=== PATIENT | male | born 1955 | race Caucasian/White ===

== ENCOUNTER 2023-05-23 08:50 | Outpatient (CLI) | payer MEDICARE, SELFPAY ==
--- NOTE | ~2023-05-23 | XR_ITS ---
Right Knee Technique: AP, lateral, and sunrise views were obtained. Clinical History: Pain and swelling Findings: No fracture or dislocation is seen. There is medial compartment narrowing. There is moderat e tricompartmental degenerative spurring. Soft tissues are unremarkable. No joint effusion is seen. Impression: Advanced medial compartment degenerative change, medial compartment narrowing. Moderate degenerative change of the lateral and patellofemoral compartments. Reviewed, dictated and finalized at location M. Impression: Advanced medial compartment degenerative change, medial compartment narrowing. Moderate degenerative change of the lateral and patellofemoral compartments.
--- NOTE | ~2023-05-23 | XR_ITS ---
Left Knee Technique: AP, lateral, and sunrise views were obtained. Clinical History: Pain and swelling Findings: No fracture or dislocation is seen. There is medial compartment narrowing. There is moderat e tricompartmental osteophyte formation. Soft tissues are unremarkable. No joint effusion is seen. Impression: Moderate to advanced tricompartmental degenerative change, worst in the medial compartment, with medi al compartment narrowing. Reviewed, dictated and finalized at location M. Impression: Moderate to advanced tricompartmental degenerative change, worst in the medial compartment, with medial compartment narrowing.
== END 2023-05-23 08:51 | disposition home or self-care (01) ==
PROVIDERS: PCP Internal Medicine; Visit Provider Orthopaedic Surgery
DX: M25.561 Pain in right knee (principal); M25.562 Pain in left knee; M17.0 Bilateral primary osteoarthritis of knee
CPT/HCPCS: 73564

== ENCOUNTER 2023-05-26 08:13 | Outpatient (CLI) | payer MEDICARE, SELFPAY ==
--- NOTE | 2023-05-26 08:29 | ECG_ITS ---
Measurements Intervals [place] Rate: 71 P: 21 ND: 193 QRS: -69 QRSD: 140 T: 66 QT: 401 QTc: 438 Interpretive Statements SINUS RHYTHM LEFT AXIS DEVIATION LEFT BUNDLE BRANCH BLOCK ABNORMAL ECG NO PREVIOUS ECG AVAILABLE FOR COMPARISON Electronically Signed On 05-26-2023 8:38:48 CDT by Manpreet Smith D.O.
[2023-05-26 08:38] LABS: Appearance Urine Clear (Clear); Basophils Absolute Auto 0.06 K/mm3 (0.00-0.10); Basophils Percent Auto 0.9 % (0.0-1.0); Bilirubin Urine Negative (Negative); Blood Urine Negative (Negative); Color Urine Light Yellow (Yellow); Eosinophils Absolute Auto 0.19 K/mm3 (0.02-0.50); Eosinophils Percent Auto 2.8 % (1.0-6.0); Glucose Urine UA Negative (Negative); Hematocrit 47.2 % (37.0-46.0); Hemoglobin 15.4 g/dL (12.4-15.3); Immature Granulocyte Absolute 0.03 K/mm3 (0.00-0.00); Immature Granulocyte Percent A 0.4 % (0.0-0.0); Ketones Urine Negative (Negative); Leukocyte Esterase Ur Negative LEU/UL (Negative); Lymphocytes Absolute Auto 2.15 K/mm3 (1.10-4.50); Lymphocytes Percent Auto 31.3 % (18.0-42.0); Mean Corpuscular HGB Conc 32.6 g/dL (32.0-36.0); Mean Corpuscular Hemoglobin 29.6 pg (27.0-31.0); Mean Corpuscular Volume 90.6 fL (78.0-102.0); Mean Platelet Volume 10.4 fl (8.7-11.0); Monocytes Absolute Auto 0.68 K/mm3 (0.10-0.90); Monocytes Percent Auto 9.9 % (2.0-11.0); Neutrophils Absolute Auto 3.8 K/mm3 (1.7-7.2); Neutrophils Percent Auto 54.7 % (50.0-70.0); Nitrate Urine Negative (Negative); Platelet Count Result 263 K/mm3 (150-420); Protein Urine Negative (Negative); Red Blood Count 5.21 M/mm3 (4.70-6.10); Red Cell Distribution Width 13.6 % (11.6-14.4); Specific Grav Ur 1.015 (1.010-1.020); Urobilinogen Urine 0.2 mg/dL (0.2-1.0); White Blood Count 6.9 K/mm3 (4.8-10.8)
[2023-05-26 08:40] LABS: Add Urine Microscopic? NO
[2023-05-26 08:56] LABS: Anion Gap 5 mmol/L (8-16); Blood Urea Nitrogen 17 mg/dL (7-18); Calcium 9.9 mg/dL (8.5-10.1); Carbon Dioxide 28 mmol/L (21-32); Chloride 106 mmol/L (98-108); Estimated Glomerular Filt Rate > 60; Glucose 108 mg/dL (70-99); Osmolality Calculated 290 mOsm/kg (285-295); Sodium 139 mmol/L (136-145)
== END 2023-05-26 08:14 | disposition home or self-care (01) ==
LOC: CHSLAB 08:14
PROVIDERS: PCP Internal Medicine; Visit Provider Orthopaedic Surgery
DX: I10 Essential (primary) hypertension (principal); M17.11 Unilateral primary osteoarthritis, right knee; I44.7 Left bundle-branch block, unspecified; R94.31 Abnormal electrocardiogram [ECG] [EKG]
CPT/HCPCS: 36415; 80048; 81003; 85025; 93005

== ENCOUNTER 2023-11-14 13:39 | Outpatient (CLI) | payer MEDICARE, SELFPAY ==
[2023-11-14 15:53] LABS: Basophils Absolute Auto 0.1 K/mm3 (0.0-0.1); Basophils Percent Auto 0.6 % (0.2-1.2); Eosinophils Absolute Auto 0.3 K/mm3 (0-0.3); Eosinophils Percent Auto 3.8 % (0-4.4); Hematocrit 46.4 % (42.0-52.0); Hemoglobin 14.8 g/dL (14.0-18.0); Immature Granulocyte Absolute 0.03 K/mm3 (0.00-0.031); Immature Granulocyte Percent A 0.4 % (0-0.5); Lymphocytes Absolute Auto 2.32 K/mm3 (0.9-3.2); Lymphocytes Percent Auto 29.3 % (18.3-44.2); Mean Corpuscular HGB Conc 31.9 g/dl (32-36); Mean Corpuscular Hemoglobin 28.8 pg (26-34); Mean Corpuscular Volume 90.4 fl (80-100); Mean Platelet Volume 10.1 fl (7.4-10.4); Monocytes Absolute Auto 0.8 K/mm3 (0.1-0.6); Monocytes Percent Auto 10.1 % (2.6-8.5); Neutrophils Absolute Auto 4.4 K/mm3 (1.3-6.7); Neutrophils Percent Auto 55.8 % (45.5-73.1); Platelet Count Result 306 k/mm3 (150-375); Red Blood Count 5.13 M/mm3 (4.6-6.20); Red Cell Distribution Width 14.7 % (11.5-14.5); White Blood Count 7.9 K/mm3 (4.5-10.0)
[2023-11-14 15:59] LABS: Partial Thromboplastin Time 30.3 SECONDS (22.3-36.8); Prothrombin Time 13.6 Seconds (11.1-14.7)
[2023-11-14 16:14] LABS: Albumin Level 4.7 g/dL (3.5-5.1); Anion Gap 8 mmol/L (8-16); Blood Urea Nitrogen 19 mg/dL (9-20); Calcium 9.6 mg/dL (8.4-10.2); Carbon Dioxide 28 mmol/L (22-30); Chloride 105 mmol/L (98-107); Estimated Glomerular Filt Rate > 60; Glucose 96 mg/dL (65-110); Potassium 4.3 mmol/L (3.4-5.0); Sodium 141 mmol/L (137-145)
[2023-11-14 16:20] LABS: Hemoglobin A1C 5.7 % (<5.7)
[2023-11-14 17:49] LABS: MRSA (PCR) NOT DETECTED (NOT DETECTE)
== END 2023-11-14 13:40 | disposition home or self-care (01) ==
LOC: ANHSURGERY 13:48
PROVIDERS: PCP Internal Medicine; Visit Provider Orthopaedic Surgery
DX: Z01.818 Encounter for other preprocedural examination (principal); M17.12 Unilateral primary osteoarthritis, left knee; I25.10 Atherosclerotic heart disease of native coronary artery without angina pectoris; I10 Essential (primary) hypertension; E78.5 Hyperlipidemia, unspecified; Z95.2 Presence of prosthetic heart valve
CPT/HCPCS: 80048; 82040; 83036; 85025; 85610; 85730; 87641

== ENCOUNTER 2023-11-22 09:41 | Outpatient (CLI) | payer MEDICARE, SELFPAY ==
--- NOTE | ~2023-11-22 | CT_ITS ---
EXAMINATION: CT abdomen pelvis wo con DATE: 11/22/2023 10:04 INDICATION: Hematuria. TECHNIQUE: Computed tomography (CT) of the abdomen and pelvis was performed without intravenous contr ast. Automated exposure control and iterative reconstruction technique were employed. The dose-length product was 532.95 mGy-cm. COMPARISON: None. FINDINGS: The visualized portions of the lung bases demonstrate mild atelectasis. No pleural effusion . The heart size is normal. There are changes of mitral valve replacement. No pericardial effusion. T he liver, spleen, pancreas, and left adrenal gland are normal. There is a 2.0 cm mass in right adrena l gland measuring low-attenuation, consistent with an adenoma. There are cysts in right kidney measur ing up to 2.8 cm. There is a 2 mm stone in right kidney. There is a 3 mm stone in left kidney. There are changes of right hemicolectomy. There are no dilated loops of bowel. The bladder is severely enla rged and measures 18.0 x 11.4 x 27.8 cm. There is calcified atherosclerosis of the aorta and many of the other arteries. There are no pathologically enlarged lymph nodes. There is no free intraperitonea l fluid. There are chronic bilateral L5 pars defects. There is 8 mm anterolisthesis of L5 on S1. Ther e is severe lower lumbar spondylosis. There is mild chronic height loss of multiple vertebral bodies. IMPRESSION: 1. Severely enlarged bladder. 2. Small bilateral nonobstructing kidney stones. Reviewed, dictated and finalized at location A. CLE REPAIRMAN
== END 2023-11-22 09:42 | disposition home or self-care (01) ==
LOC: CHSIMG 09:42
PROVIDERS: PCP Internal Medicine; Visit Provider Internal Medicine
DX: R31.9 Hematuria, unspecified (principal); R93.41 Abnormal radiologic findings on diagnostic imaging of renal pelvis, ureter, or bladder; N20.0 Calculus of kidney
CPT/HCPCS: 74176

== ENCOUNTER 2023-11-27 09:28 | Outpatient (CLI) | payer MEDICARE, SELFPAY ==
[2023-11-27 10:07] LABS: Appearance Urine Clear (Clear); Bacteria Urine None Seen /hpf; Bilirubin Urine Negative (Negative); Color Urine Yellow (Yellow); Glucose Urine UA Negative (Negative); Ketones Urine Negative (Negative); Leukocyte Esterase Ur 2+ LEU/UL (Negative); Nitrate Urine Negative (Negative); Non Pathogenic Casts 0-2; Protein Urine Trace mg/dL (Negative); Specific Grav Ur 1.013 (1.001-1.035); Squamous Epithelial Cell Urine None seen /hpf (Few); Urobilinogen Urine 0.2 mg/dL (<2.0); WBC Urine 21-50 /hpf; pH Urine 6.5 (5.0-9.0)
[2023-11-27 10:13] LABS: Add Urine Microscopic? YES
[2023-11-27 10:17] LABS: Urine Cotinine NEGATIVE
== END 2023-11-27 09:29 | disposition home or self-care (01) ==
PROVIDERS: PCP Internal Medicine; Visit Provider Orthopaedic Surgery
DX: M17.11 Unilateral primary osteoarthritis, right knee (principal); Z01.818 Encounter for other preprocedural examination
CPT/HCPCS: 80307; 81001; 86850; 86900; 86901; 87086

== ENCOUNTER 2023-11-28 00:33 | Day surgery (SDC) | payer MEDICARE, SELFPAY ==
[2023-11-14 14:07] VITALS: BMI 38.9
--- NOTE | 2023-11-14 14:40 | PC.NURSE ---
Report to the Outpatient Waiting Room, entrance under the green pavilion located off [facility], at time __8:30AM on date _11/28/23 . Planned Procedure Time: __10:30AM . Time changes happen often and if your time is changed the preop area will call you the afternoon before. - You and your visitor will be asked to self-screen and do not enter if you have any COVID symptoms. - A mask is optional within the hospital at this time. Patients may have clear liquids (water, carbonated beverages, clear teas, apple juice) until 3 hours prior to surgery with a maximum of 20 ounces. - No food from midnight until time of surgery. Take the following medications with a SIP of water the morning of surgery: ____CARVEDILOL DO NOT STOP ANY OF YOUR OTHER PRESCRIPTION MEDICATIONS PRIOR TO SURGERY ?EXCEPT THE FOLLOWING Medications to discontinue per physician ____HOLD ALL ASPIRIN 7 DAYS PRE-OP PER DR ZARATE Date to take last dose 11/20/23 Please no make-up, nail bolivian, hairspray, perfume, deodorant, or body powder the day of surgery. No jewelry (including any body piercings) or valuables the day of surgery, leave them at home. Please take a shower or bath the night before, or the morning of, surgery with an antibacterial soap. Wear comfortable, loose fitting clothing. - Jewelry must be removed prior to entering the operating room. Rings and piercings that are not removed may be cut off. - The hospital will not accept responsibility for valuables. - Please leave all valuables, including medications, at home the day of surgery. If you are going home after surgery, a licensed set key driver must drive you home. - NO public transportation without another adult if you receive anesthesia. - We recommend that an adult stay with you for 24 hours following discharge. - We also recommend that you do not drive, make important decision, drink alcoholic beverages, or take any drugs that were not prescribed by your health care provider for at least 24 hours after your discharge time. Follow any additional instructions given to you from your surgeon. If you or anyone in your household have experienced Covid symptoms in the past week, please notify your surgeon or the nurse liaison at the phone number below for possible testing. Telephone instructions given to ___PATIENT & WIFE and asked if any additional questions and then verbalized understanding. Patient advised to call surgeon office or pre surgery nurse liaison [phone] if any additional questions.
[2023-11-14 15:04] VITALS: BP 143/84; PULSE 79; RESP 16; TEMP 36.7; O2SAT 97
--- NOTE | 2023-11-27 14:01 | WPDANESEPPF ---
Anes - Initial Pre Proc Eval Procedure: Operation Date: 11/28/23 10:30 Proposed Procedures p Left Total Knee Arthroplasty - Roc Ocampo MD Date/Time: 11/27/23 14:01 Surgeon: Roc Ocampo MD Pre Op Diagnosis: left knee DJD Patient Data Age: 68 Gender: M Height: 1.7 m Weight: 113 kg Last Vital Signs Temp 36.7 C 11/14/23 15:04 Pulse 79 11/14/23 15:04 Resp 16 11/14/23 15:04 BP 143/84 H 11/14/23 15:04 Pulse Ox 97 11/14/23 15:04 O2 Del Method Room Air 11/14/23 15:04 Allergies Allergy/AdvReac Type Severity Reaction Status Date / Time No Known Allergies Allergy Verified 11/28/23 10:40 Home Medications Medication Instructions Recorded Confirmed Type aspirin 81 mg capsule 81 mg PO DAILY 05/23/23 11/14/23 History atorvastatin 20 mg tablet 20 mg PO DAILY 05/23/23 11/14/23 History carvedilol 12.5 mg tablet 12.5 mg PO Q12H 05/23/23 11/14/23 History furosemide 40 mg tablet 40 mg PO QAM 05/23/23 11/14/23 History lisinopril 20 mg tablet 20 mg PO QAM 05/23/23 11/14/23 History tamsulosin 0.4 mg capsule 0.4 mg PO QAM 05/23/23 11/14/23 History chlorhexidine gluconate 4 % 1 applic topical ONCE #237 mL 11/14/23 Rx topical liquid (Hibiclens) psyllium husk 0.4 gram capsule 0.8 g PO DAILY 11/14/23 11/14/23 History (Metamucil) chlorhexidine gluconate 4 % 1 applic topical ONCE #237 mL 11/21/23 Rx topical liquid (Hibiclens) levofloxacin 500 mg tablet 500 mg PO DAILY UTI 10 days #10 11/27/23 Rx tabs Patient hx anesthesia problems: none Family hx anesthesia problems: none Results Review: All pre-operative results and documents have been reviewed as part of the pre-operative evaluation. [facility]LY [facility] Past Medical History Medical History (Updated 11/27/23 @ 14:01 by Myles Arenas DO) Atrial fibrillation CAD (coronary artery disease) CHF (congestive heart failure) Colon cancer Enlarged prostate Hyperlipidemia Hypertension Left knee DJD Right knee DJD Sleep apnea Thyroid nodule Surgical History Surgical History (Updated 11/17/23 @ 10:34 by ANTONIO Peoples) H/O hernia repair Heart valve transplanted Family History Family History Unknown Hypertension Heart disease Diabetes mellitus Social History Social History Smoking status: Never smoker Alcohol intake: never Substance use type: does not use Living arrangements: with family Additional living arrangements comments: Occupation/Education: retired Gender identity (if verbalized by the patient): Male Spiritual care concerns: No Anes - Eval Final PreProcedure Day of Procedure 11/27/23 14:01 Patient weight: obese Heart: regular rate and rhythm Lungs: clear to auscultation Airway: Mallampati scale class II Neurological: alert and oriented Last oral intake: >/= 8 hours ASA classification: III Emergent: no Anesthetic plan: proceed Anesthesia type and monitoring: general LMA and standard monitoring Results Review: All pre-operative results and documents have been reviewed as part of the pre-operative evaluation. Informed Consent: The patient's anesthetic plan and its attendant risks and benefits were discussed with the patient/family/POA. Questions were solicited and answers provided to the satisfaction of the patient/family/POA.
[2023-11-28] VITALS (13 sets, daily range): BP systolic 110–175; BP diastolic 56–84; PULSE 72–84; RESP 12–20; TEMP 36–37.1; O2SAT 88–99; BMI 38.5
--- NOTE | ~2023-11-28 | XR_ITS ---
EXAMINATION: [id number] DATE: 11/28/2023 13:57 INDICATION: Total left knee arthroplasty. Postop. TECHNIQUE: 2 views of left knee were obtained. COMPARISON: Left knee radiographs 05/23/2023 FINDINGS: There is a total left knee arthroplasty in near-anatomic alignment without patellar resurfa cing. No fracture. There is an osteophyte of the patella. There is gas in the knee joint and soft tis sues, consistent with recent surgery. Anterior skin lisa are noted. IMPRESSION: 1. Total left knee arthroplasty in near-anatomic alignment. Reviewed, dictated and finalized at location E. AL DAYCARE PROVIDER
--- NOTE | 2023-11-28 07:16 | WPDHPUPDATE1 ---
History and Physical Update Update Date/Time: 11/28/23 07:16 History and Physical has been reviewed, including an updated exam of the patient. There are NO changes in the patient's condition. Risks, benefits, and alternatives have been discussed and questions answered. Patient agrees to proceed with procedure.
[2023-11-28] MEDS: TRANEXAMIC ACID 1,000MG/ISO100 1,000 MG/100 ML BAG 200 MG IVPB (09:25)
[2023-11-28] MEDS: LACTATED RINGERS 1,000 ML 30 ML IV CONT ×2 (09:25→13:42)
[2023-11-28] MEDS: ACETAMINOPHEN 500 MG TABLET 1000 MG PO (09:31)
--- NOTE | 2023-11-28 10:20 | SUR.PREOP ---
1020- Dr. Ocampo at bedside and notified of scratch on patient's left rose below operative knee that is closed, scabbed over and healing. Dr. Ocampo assessed scratch and OK to proceed with procedure.
--- NOTE | 2023-11-28 10:44 | WPDANESPNB ---
Anes - Peripheral Nerve Block Date/Time: 11/28/23 10:44 I have discussed with the patient/family/POA the placement of a peripheral nerve block for post-operative pain management, including associated risks, benefits, complications, and side effects. Alternative methods of post-operative analgesia were detailed. Questions were solicited and answers provided to the satisfaction of the patient/family/POA. Time-Out: A pre-procedural Time-Out was completed immediately before starting the procedure and confirmed: Patient Identification, Site, Procedure, Patient Position and the Availability of Requisite Equipment. Clinical Indications: Acute post-operative pain management requested by the operative surgeon. Nerve Block Insertion Note Anes-nerve block: adductor canal left Patient position: supine Skin prep: chlorhexidine Needle: 22 gauge, stimulating, insulated echogenic needle. Needle length: 80 mm Technique: ultrasound Injectate: bupivacaine 0.5% with epi 5 mcg/ml (30cc - no epi) Observations: tolerated well Complications: none Procedure start time:: 1033 Procedure end time:: 1035
[2023-11-28] MEDS: ceFAZolin 2 GM/D5W 50 ML 2 GM/50 ML BAG IVPB ×2 (10:57→20:10)
[2023-11-28] MEDS: SODIUM CHLORIDE 0.9% IV 37.7 ML, MORPHINE SULFATE INJ (*CRX) 2 MG, ROPivacaine HCL 1% 2... INFILTRATE (11:41)
[2023-11-28] MEDS: TRANEXAMIC ACID 1,000 MG/10 ML AMPUL 1000 MG IV PUSH (12:45)
--- NOTE | 2023-11-28 13:43 | W.PM.PROC2 ---
Procedure Note - Detailed Date of Procedure 11/28/23 Pre-op Diagnosis left knee DJD Post-op Diagnosis Same Procedure Performed L TKA Surgeon Roc Ocampo MD Anesthesia General Description of Procedure THE LEFT KNEE WAS PREPPED AND DRAPED IN THE STERILE FASHION. THERE WAS A 20 DEGREE FLEXION CONTRACTURE. A MIDLINE SKIN INCISION WAS MADE. A MEDIAL PARAPATELLAR ARTHROTOMY WAS MADE. THE PATELLA WAS EVERTED. THERE WAS TRICOMPARTMENT DJD. AN INTRAMEDULLARY DEMARIO WAS PLACED IN THE FEMUR. A DISTAL FEMORAL CUT WAS MADE IN 5 DEGREES OF VALGUS REMOVING APPROXIMATELY 11 MM OF BONE FROM THE DISTAL FEMUR. THE FEMUR WAS SIZED TO 70. A 70 FEMORAL CUTTING BLOCK WAS PLACED IN 3 DEGREES OF EXTERNAL ROTATION AND IN ALIGNMENT WITH FARRAH'S LINE AND THE TRANSEPICONDYLAR AXIS. ANTERIOR POSTERIOR AND CHAMFER CUTS WERE MADE. THE CUTS WERE EXCELLENT. NEXT AN INTRAMEDULLARY CUTTING GUIDE WAS PLACED IN THE TIBIA. A TRANS TIBIAL CUT WAS MADE ALONG THE LONG AXIS OF THE TIBIA. APPROXIMATELY 10 MM OF BONE WAS REMOVED FROM THE HIGH SIDE OF THE TIBIA. THE TIBIA WAS THEN PLANED TO A SMOOTH SURFACE. POSTERIOR FEMORAL OSTEOPHYTES WERE REMOVED FROM THE FEMORAL CONDYLES. AN 83 TIBIAL TRIAL WAS PLACED IN ALIGNMENT WITH THE 1/3 MEDIAL ASPECT OF THE TIBIAL TUBERCLE. THEN A 70 FEMORAL TRIAL COMPONENT WAS PLACED. BOTH HAD EXCELLENT FITS. EVENTUALLY AN 11 MM CR POLYETHYLENE TRIAL COMPONENT WAS PLACED. THE KNEE WAS TAKEN THROUGH A RANGE OF MOTION. THE KNEE CAME OUT TO FULL EXTENSION. THERE WAS NO ABNORMAL TILT TO THE PATELLA. THERE WAS GOOD A/P AND VARUS/VALGUS STABILITY. THERE WAS NO EXCESSIVE ROLL BACK WITH FLEXION. THE TRIAL COMPONENTS WERE REMOVED. THEN A 70 FEMORAL COMPONENT AND 83 TIBIAL COMPONENT WITH AN 11 CR POLYETHYLENE COMPONENT WERE CEMENTED INTO PLACE. ONCE THE CEMENT WAS HARD THE KNEE WAS TAKEN THROUGH A ROM AGAIN AND FOUND TO BE STABLE WITH NO PATELLA TILT NO EXCESSIVE ROLL BACK WITH FLEXION AND GOOD STABILITY WITH COMPLETE AND FULL EXTENSION. THE KNEE WAS IRRIGATED WITH STERILE BETADINE AND WATER FOR ABOUT 3 MINUTES. THE BLEEDERS WERE CAUTERIZED. THE ARTHROTOMY WAS REPAIRED WITH NUMBER 1 VICRYL. THE SUB CUTANEOUS LAYER WITH 2-0 VICRYL AND THE SKIN WITH MARSHALL. THE WOUND WAS WASHED AND A STERILE DRESSING WAS APPLIED. PATIENT WAS EXTUBATED. Estimated Blood Loss -150.0 Pathology None sent Complications No immediate complications Condition Stable Disposition PACU
--- NOTE | 2023-11-28 15:09 | PC.NURSE ---
This patient, Terrence Mccoy, was received from [PACU] on 11/28/23 at 1450. Patient/family oriented to unit policies and routines
[2023-11-28] MEDS: KETOROLAC 15 MG/ML VIAL (*BKC) IV PUSH ×2 (15:17→20:11)
[2023-11-28] MEDS: SODIUM CHLORIDE 0.9% IV 1,000 ML 125 ML IV CONT (15:17)
[2023-11-28] MEDS: SENNA/DOCUSATE SODIUM TABLET 2 TAB PO (17:01)
[2023-11-28] MEDS: oxyCODONE/ACETAMINOPHEN (*CRX) 5-325 MG TABLET 1 TABLET PO ×2 (17:01→20:14)
[2023-11-28] MEDS: carvediloL 12.5 MG TABLET PO (20:11)
[2023-11-28] MEDS: ASPIRIN 325 MG ENTERIC TABLET PO (20:14)
[2023-11-28] MEDS: FAMOTIDINE 20 MG TABLET PO (20:14)
[2023-11-29 00:22] VITALS: BP 134/71; PULSE 70; RESP 19; TEMP 36; O2SAT 98
[2023-11-29] MEDS: oxyCODONE/ACETAMINOPHEN (*CRX) 5-325 MG TABLET 1 TABLET PO ×4 (01:17→12:14)
[2023-11-29] MEDS: KETOROLAC 15 MG/ML VIAL (*BKC) IV PUSH ×3 (03:59→14:31)
[2023-11-29] MEDS: ceFAZolin 2 GM/D5W 50 ML 2 GM/50 ML BAG IVPB ×2 (03:59→10:04)
[2023-11-29 04:22] VITALS: BP 141/71; PULSE 66; RESP 19; TEMP 36; O2SAT 98
[2023-11-29 04:54] VITALS: PULSE 65; RESP 18; O2SAT 96
[2023-11-29 06:29] LABS: Basophils Percent Auto 0.2 % (0.2-1.2); Eosinophils Percent Auto 0.2 % (0-4.4); Hematocrit 42.2 % (42.0-52.0); Hemoglobin 13.4 g/dL (14.0-18.0); Immature Granulocyte Absolute 0.06 K/mm3 (0.00-0.031); Immature Granulocyte Percent A 0.4 % (0-0.5); Lymphocytes Absolute Auto 1.98 K/mm3 (0.9-3.2); Lymphocytes Percent Auto 13.9 % (18.3-44.2); Mean Corpuscular HGB Conc 31.8 g/dl (32-36); Mean Corpuscular Hemoglobin 29.9 pg (26-34); Mean Corpuscular Volume 94.2 fl (80-100); Mean Platelet Volume 9.8 fl (7.4-10.4); Monocytes Absolute Auto 1.6 K/mm3 (0.1-0.6); Monocytes Percent Auto 11.1 % (2.6-8.5); Neutrophils Absolute Auto 10.6 K/mm3 (1.3-6.7); Neutrophils Percent Auto 74.2 % (45.5-73.1); Platelet Count Result 274 k/mm3 (150-375); Red Blood Count 4.48 M/mm3 (4.6-6.20); Red Cell Distribution Width 14.9 % (11.5-14.5); White Blood Count 14.3 K/mm3 (4.5-10.0)
[2023-11-29 08:00] VITALS: BP 127/66; PULSE 82; RESP 18; TEMP 36.4; O2SAT 99
[2023-11-29 08:11] LABS: Anion Gap 2 mmol/L (8-16); Blood Urea Nitrogen 17 mg/dL (9-20); Calcium 8.6 mg/dL (8.4-10.2); Carbon Dioxide 29 mmol/L (22-30); Chloride 106 mmol/L (98-107); Estimated CRCL calculation 89 ml/min; Estimated Glomerular Filt Rate > 60; Glucose 108 mg/dL (65-110); Potassium 4.2 mmol/L (3.4-5.0); Sodium 137 mmol/L (137-145)
[2023-11-29] MEDS: FUROSEMIDE 40 MG TABLET PO (08:30)
[2023-11-29] MEDS: TAMSULOSIN HCL 0.4 MG CAPSULE PO (08:30)
[2023-11-29] MEDS: FAMOTIDINE 20 MG TABLET PO (08:30)
[2023-11-29] MEDS: ASPIRIN 325 MG ENTERIC TABLET PO (08:30)
[2023-11-29] MEDS: lisinopriL 20 MG TABLET PO (08:30)
[2023-11-29] MEDS: polyethylene glycoL 3350 17 GM POWD.PACK PO (08:30)
[2023-11-29] MEDS: SENNA/DOCUSATE SODIUM TABLET 2 TAB PO (08:30)
[2023-11-29] MEDS: ATORVASTATIN 20 MG TABLET PO (08:30)
[2023-11-29] MEDS: carvediloL 12.5 MG TABLET PO (08:30)
--- NOTE | 2023-11-29 09:03 | WPDANESPN ---
Anes - Prog Note Post-Op Date/Time: 11/29/23 09:03 Vital Signs: Last Vital Signs Temp 36.0 C L 11/29/23 04:22 Pulse 65 11/29/23 04:54 Resp 18 11/29/23 04:54 BP 141/71 H 11/29/23 04:22 Pulse Ox 96 11/29/23 04:54 O2 Del Method Nasal Cannula 11/29/23 04:54 O2 Flow Rate 1.5 11/29/23 04:54 Pain Score (VAS): 0 I/O: Intake & Output 11/28/23 11/29/23 11/29/23 23:59 07:59 15:59 Intake Total 1250 50 Balance 1250 50 Laboratory Tests 11/29/23 05:47 11/29/23 07:43 11/29/23 11/29/23 05:47 07:43 WBC 14.3 H RBC 4.48 L Hgb 13.4 L Hct 42.2 MCV 94.2 MCH 29.9 MCHC 31.8 L RDW 14.9 H Plt Count 274 MPV 9.8 Immature Gran % (Auto) 0.4 Neut % (Auto) 74.2 H Lymph % (Auto) 13.9 L [place] % (Auto) 11.1 H Eos % (Auto) 0.2 Baso % (Auto) 0.2 Lymph # (Auto) 1.98 [place] # (Auto) 1.6 H Eos # (Auto) 0.0 Baso # (Auto) 0.0 Abs Immat Gran (auto) 0.06 H Absolute Neuts (auto) 10.6 H Absolute Nucleated RBC 0.0 Nucleated RBC % 0.0 Sodium 137 Potassium 4.2 Chloride 106 Carbon Dioxide 29 Anion Gap 2 L BUN 17 Creatinine 0.80 Estim Creat Clear Calc 89 Estimated GFR > 60 Glucose 108 Calcium 8.6 Patient Feedback: Patient satisfied with anesthetic care. pt states he still has no pain and is doing great.
--- NOTE | 2023-11-29 10:56 | PM.PNORT ---
Progress Note: A&P Assessment and Plan (1) Left knee DJD: Qualifiers: Osteoarthritis type: primary Qualified Code(s): M17.12 - Unilateral primary osteoarthritis, left knee Code(s): M17.12 - Unilateral primary osteoarthritis, left knee Status: Acute Assessment and Plan: POD 1 DOING WELL. OK TO DC AFTER AFTERNOON PT SESSION. HE WILL F/U IN 3 WEEKS. (2) Right knee DJD: Code(s): M17.11 - Unilateral primary osteoarthritis, right knee Status: Acute Subjective Subjective Date/Time Seen: 11/29/23 10:56 Interval history: POD 1 DOING WELL. GOOD PROGRESS WITH PT. NO CALF PAIN Exam Extrem: Other: VSS AFEBRILE DRESSING DRY NV INTACT NEG HOMANS SIGN, CALF SOFT NON TENDER Objective Data Vital Signs Vital Signs: Vital Signs - 24 hr 11/28/23 13:42 11/28/23 14:10 11/28/23 14:13 Temperature 37.1 C Pulse Rate 80 76 Respiratory Rate 12 14 Blood Pressure 116/66 110/61 Pulse Oximetry 95 96 88 L Oxygen Delivery Simple Face Mask Room Air Nasal Cannula Oxygen Flow Rate 6 3 11/28/23 14:25 11/28/23 13:55 11/28/23 15:38 Temperature 36.1 C L Pulse Rate 78 79 Respiratory Rate 16 12 Blood Pressure 110/56 L 114/76 Pulse Oximetry 94 97 Oxygen Delivery Nasal Cannula Simple Face Mask Nasal Cannula Oxygen Flow Rate 3 6 3 11/28/23 14:50 11/28/23 15:05 11/28/23 15:35 Temperature 36.4 C 36.3 C L 36.4 C Pulse Rate 78 72 76 Respiratory Rate 20 20 18 Blood Pressure 175/76 H 152/80 H 141/75 H Pulse Oximetry 99 99 99 Oxygen Delivery Oxygen Flow Rate 11/28/23 16:35 11/28/23 14:53 11/28/23 20:11 Temperature 36.4 C Pulse Rate 74 84 Respiratory Rate 20 Blood Pressure 130/66 Pulse Oximetry 99 99 Oxygen Delivery Nasal Cannula Oxygen Flow Rate 3 11/28/23 20:22 11/29/23 00:22 11/29/23 04:22 Temperature 36.0 C L 36.0 C L 36.0 C L Pulse Rate 82 70 66 Respiratory Rate 19 19 19 Blood Pressure 130/74 134/71 141/71 H Pulse Oximetry 97 98 98 Oxygen Delivery Oxygen Flow Rate 11/29/23 04:54 11/29/23 08:35 11/29/23 08:30 Temperature Pulse Rate 65 Respiratory Rate 18 Blood Pressure Pulse Oximetry 96 Oxygen Delivery Nasal Cannula Room Air Room Air Oxygen Flow Rate 1.5 Intake/Output Intake/Output: Intake & Output 11/26/23 11/27/23 11/28/23 11/29/23 23:59 23:59 23:59 23:59 Intake Total 1500 50 Balance 1500 50 Meds/Results Medications: Active Medications Generic Name Dose Route Start Last Admin Trade Name Freq PRN Reason Stop Dose Admin Acetaminophen 1,000 mg 11/28/23 14:37 Acetaminophen 500 Mg Tablet PO Q6H PRN Pain Rated 1-3 Hydrocodone Bitart/Acetaminophen 1 tab 11/28/23 14:37 Hydrocodone/Acetaminophen (*Crx) 5-325 Mg Tablet PO Q4H PRN Pain Rated 4-6 Aspirin 325 mg 11/28/23 21:00 11/29/23 08:30 Aspirin 325 Mg Enteric Tablet PO 325 mg Q12HR QUINTON Administration Atorvastatin Calcium 20 mg 11/29/23 09:00 11/29/23 08:30 Atorvastatin 20 Mg Tablet PO 20 mg DAILY QUINTON Administration Carvedilol 12.5 mg 11/28/23 21:00 11/29/23 08:30 Carvedilol 12.5 Mg Tablet PO 12.5 mg Q12H QUINTON Administration Diazepam 5 mg 11/28/23 14:37 Diazepam (*Crx) 5 Mg Tablet PO Q8H PRN Spasms Diphenhydramine HCl 25 mg 11/28/23 14:37 Diphenhydramine Hcl Inj 50 Mg/Ml Vial IV PUSH Q6H PRN Itching Famotidine 20 mg 11/28/23 21:00 11/29/23 08:30 Famotidine 20 Mg Tablet PO 20 mg Q12HR QUINTON Administration Furosemide 40 mg 11/29/23 09:00 11/29/23 08:30 Furosemide 40 Mg Tablet PO 40 mg QAM QUINTON Administration Cefazolin Sodium 2 gm in 50 mls @ 100 mls/hr 11/28/23 19:00 11/29/23 10:04 Ancef 2 Gm/D5w 50 Ml IVPB 11/29/23 11:29 100 mls/hr Q8H QUINTON Administration Ketorolac Tromethamine 15 mg 11/28/23 15:00 11/29/23 08:29 Ketorolac 15 Mg/Ml Vial (*Bkc) IV PUSH 11/29/23 15:01 15 mg Q6H QUINTON Administratio
--- NOTE | 2023-11-29 10:59 | PM.DS ---
DS: Admitting Diagnosis Discharge Date 11/29/23 Admitting Diagnosis LEFT KNEE DJD DS: Discharge Diagnosis Discharge Diagnosis (1) Left knee DJD: Qualifiers: Osteoarthritis type: primary Qualified Code(s): M17.12 - Unilateral primary osteoarthritis, left knee Code(s): M17.12 - Unilateral primary osteoarthritis, left knee Status: Acute DS: Summary Hospital Course Reason for hospitalization: LEFT TKA Hospital Course: PATIENT WAS ADMITTED S/P TOTAL KNEE ARTHROPLASTY FOR POSTOPERATIVE MEDICAL MANAGEMENT, PAIN CONTROL AND MOBILIZATION WITH PHYSICAL AND OCCUPATIONAL THERAPY. THE PATIENT PROGRESSED WELL WITH PT/OT. LABS AND VITALS REMAINED STABLE AND PAIN WELL CONTROLLED. THE PATIENT HAS BEEN CLEARED TO BE DISCHARGED HOME. FOLLOW UP APPOINTMENT SCHEDULED. DISCHARGE INSTRUCTIONS DISCUSSED AT LENGTH WITH THE PATIENT. MEDICATIONS REVIEWED. Status at Discharge Cognitive/behavioral status at discharge: STABLE Time Spent with Patient Time attestation: Total time spent providing and/or coordinating discharge services: DS: Data Data Completed and Pending Labs on day of discharge: Labs from last 24 hours 11/29/23 11/29/23 07:43 05:47 WBC 14.3 H RBC 4.48 L Hgb 13.4 L Hct 42.2 MCV 94.2 MCH 29.9 MCHC 31.8 L RDW 14.9 H Plt Count 274 MPV 9.8 Immature Gran % (Auto) 0.4 Neut % (Auto) 74.2 H Lymph % (Auto) 13.9 L [place] % (Auto) 11.1 H Eos % (Auto) 0.2 Baso % (Auto) 0.2 Lymph # (Auto) 1.98 [place] # (Auto) 1.6 H Eos # (Auto) 0.0 Baso # (Auto) 0.0 Abs Immat Gran (auto) 0.06 H Absolute Neuts (auto) 10.6 H Absolute Nucleated RBC 0.0 Nucleated RBC % 0.0 Sodium 137 Potassium 4.2 Chloride 106 Carbon Dioxide 29 Anion Gap 2 L BUN 17 Creatinine 0.80 Estim Creat Clear Calc 89 Estimated GFR > 60 Glucose 108 Calcium 8.6 Procedures/Treatments: LEFT TKA Discharge Plan Discharge Patient Disposition: Home, Self-Care Discharge Instructions: FERNY OCAMPO M.D. [facility] [address] [place] [address] POST OPERATIVE DISCHARGE INSTRUCTIONS FOLLOWING TOTAL KNEE REPLACEMENT SURGERY ? Your dressing will be changed prior to your discharge. You will be sent home with one additional dressing to be changed on post op day 7 by the home health RN. Your lisa will be removed on the 14th day after surgery and steri-strips will be placed. Please practice good hand hygiene and do not touch your incision in order to prevent infection. ? You may shower with your dressing but do not submerge in a bath tub. ? Do not drive or operate machinery until you are released by Dr. Ocampo. ? Do not walk without a walker for any reason until you are released by Dr. Ocampo. ? Continue to use your ice machine. Please use a towel or pillow case to protect your skin before applying your ice machine. ? Do NOT place a pillow under your knee. You may use a pillow from the calf down if needed. This will prevent a flexion contracture postoperatively. ? You may begin use of your CPM machine at home if you have been given one pre-operatively. DO NOT USE WHILE YOU ARE SLEEPING. ? Your first post op appointment was sent to you via mail preoperatively. If you have any questions or are unable to make your appointment, please contact our office for scheduling questions. ? Your medications have been sent to your pharmacy. You have been sent home with pain medication. We have also sent you with a stool softener as narcotics can cause constipation. Please keep this in mind during your postoperative recovery. If you are not experiencing regular bowel movements, please contact our office for further instruction. ? Please contact our office with any questions/concerns regarding your knee at [phone]. TAKE 2 ADULT STRENGTH ASPIRIN EAC DAY FOR 3 WEEKS FOR BLOOD CLOT PREVENTION Stand Alone F
[2023-11-29 14:00] VITALS: BP 120/60; PULSE 80; RESP 20; TEMP 36.3; O2SAT 99
== END 2023-11-29 15:45 | disposition home health service (06) ==
LOC: ANHSURGERY 07:52 → ANH3MEDSUR 14:39
PROVIDERS: PCP Internal Medicine; Visit Provider Orthopaedic Surgery
PROC: (CPT 27447; principal; 2023-11-28 10:30)
DX: M17.12 Unilateral primary osteoarthritis, left knee (principal); G89.18 Other acute postprocedural pain; I48.91 Unspecified atrial fibrillation; I25.10 Atherosclerotic heart disease of native coronary artery without angina pectoris; I11.0 Hypertensive heart disease with heart failure; I50.9 Heart failure, unspecified; N40.0 Benign prostatic hyperplasia without lower urinary tract symptoms; G47.30 Sleep apnea, unspecified; E78.5 Hyperlipidemia, unspecified; Z79.82 Long term (current) use of aspirin; Z79.899 Other long term (current) drug therapy
CPT/HCPCS: 27447; 64447; 36415; 73560; 80048; 85025; 97110; 97116; 97161; 97165; 97530; 97535; A9270; C1713; C1776; J0171; J0690; J1100; J1170; J1885; J2250; J2270; J2371; J2405; J2704; J2795; J3010; J7030; J7120

== ENCOUNTER 2023-12-19 08:10 | Outpatient (CLI) | payer MEDICARE, SELFPAY ==
--- NOTE | ~2023-12-19 | XR_ITS ---
XR knee LT 3V 12/19/2023 08:42 Indication: Left knee pain Procedure: 3 views left knee Comparison: 05/23/2023 Findings: There is a left total knee arthroplasty. Prosthesis well seated. No fracture or traumatic m alalignment. No significant soft tissue abnormality. No foreign bodies. Impression: 1: No acute bone or joint abnormality. Reviewed, dictated and finalized at location L. Impression: 1: No acute bone or joint abnormality.
== END 2023-12-19 08:11 | disposition home or self-care (01) ==
LOC: CHSIMG 08:17
PROVIDERS: PCP Internal Medicine; Visit Provider Orthopaedic Surgery
DX: M25.562 Pain in left knee (principal)
CPT/HCPCS: 73562

== ENCOUNTER 2023-12-25 08:02 | Outpatient (RCR) | payer MEDICARE, SELFPAY ==
--- NOTE | 2023-12-25 07:49 | OPREHPOC ---
Outpatient Therapy Plan of Care This is a Multidisciplinary Plan of Care that may contain components documented by all disciplines (PT, OT, and ST.) PT Problem 1 PT Problem #1 Knowledge Deficit PT Goal 1 Goal 1. independent and compliant with HEP Target Visit 4 PT Problem 2 PT Problem #2 Pain PT Goal 1 Goal 1. no pain in the L knee Target Visit 8 PT Problem 3 PT Problem #3 Impaired Range of Motion PT Goal 1 Goal 1. 0-120 degrees active L knee rom Target Visit 8 PT Problem 4 PT Problem #4 Impaired Strength PT Goal 1 Goal 1. 5/5 L knee strength 2. 5/5 L hip flexion with no extension lag of the L knee Target Visit 8 PT Problem 5 PT Problem #5 Impaired Functional Mobil PT Goal 1 Goal 1. patient to ambulate on level surface with normal mechanics and no AD. 2. patient to ambulate up and down steps with reciprocal mechanics 3. LEFS to display less than 30% functional deficits 4. patient to ambulate 1000ft or better in 6 minutes 5. 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
--- NOTE | 2023-12-25 07:49 | PTOPEVAL1 ---
Assessment and note entered by JT File, PT Evaluation Information Assessment Status Evaluation Diagnosis s/p L TKA Onset 11/28/23 Subjective Information patient reports he has a TKA of the L knee on 02/15. he reports he has been doing home health since surgery. in addition to home health he also had a CPM he was using daily. he reports the home health PT told him he has full extension and 100 degrees of flexion. he reports it still swells up on him at time. he reports its not true pain, but there is pressure in the knee. he reports he has been using the cane to ambulate for about 1 week. he reports prior to surgery he was really struggling to get around and was unable to bend the knee much. he reports he was not using an AD consistently. patient reports he would like to get back to work in his shop, and in his [employer] shop. he also reports he would like to get back to volunteering at the [employer]. Reported Pain Level Pain Score 4: Self Report Assessment PT Clinical Summary mr. frankel is a 68 yo man who presents to skilled PT services for evaluation and treatment s /p L TKA. he presents today with deficits in knee active rom, L LE strength, and gait mechanics/ stair ambulation. he is nearly 4 weeks post op, and has been compliant with home health and HEP at home. continued skilled PT is indicated to assist patient in achieving full rom, full strength, and normal ambulation/stair ambulation mechanics to return to his prior level functional activity performance and quality of life. Plan of Care Interventions Electrical Stimulation,Gait Training,Hot Pack/Cold Pack,Intermittent Compression,Manual Therapy, Neuro Re-education,Patient/Caregiver Educati, Therapeutic Activities,Therapeutic Exercise PT Services Indicated Yes Treatment Frequency and 2x weekly for 8 visits Duration These treatments will address the objective and functional deficits as defined above. The patient will be advanced safely and appropriately in order for the patient to progress towards his/her prior level of function. Additional exercises will be introduced and as well as a comprehensive home exercise program upon discharge, if needed, ?to ensure carryover of functional gains achieved in the clinic. This treatment plan has been reviewed and agreement upon by the patient.
--- NOTE | 2024-01-10 09:34 | OPREHPOC ---
Outpatient Therapy Plan of Care This is a Multidisciplinary Plan of Care that may contain components documented by all disciplines (PT, OT, and ST.) PT Problem 1 PT Problem #1 Knowledge Deficit PT Goal 1 Goal 1. independent and compliant with HEP Target Visit 4 Progress Partially Met PT Problem 2 PT Problem #2 Pain PT Goal 1 Goal 1. no pain in the L knee Target Visit 8 Progress Partially Met PT Problem 3 PT Problem #3 Impaired Range of Motion PT Goal 1 Goal 1. 0-120 degrees active L knee rom Target Visit 8 Progress Partially Met PT Problem 4 PT Problem #4 Impaired Strength PT Goal 1 Goal 1. 5/5 L knee strength 2. 5/5 L hip flexion with no extension lag of the L knee Target Visit 8 Progress Partially Met PT Problem 5 PT Problem #5 Impaired Functional Mobil PT Goal 1 Goal 1. patient to ambulate on level surface with normal mechanics and no AD. 2. patient to ambulate up and down steps with reciprocal mechanics 3. LEFS to display less than 30% functional deficits 4. patient to ambulate 1000ft or better in 6 minutes 5. 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
--- NOTE | 2024-01-10 09:35 | PTOPPROG ---
Assessment and note entered by Citlaly Hernández, PT Evaluation Information Assessment Status Discharge Diagnosis s/p L TKA Onset 11/28/23 Subjective Information Terrence Mccoy reports his left knee is doing well. He is able to go up and down stairs without favoring one leg. He is going one step at a time but is not always using his strong leg. 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 He is able to walk 2-3 miles a day throughout the day and notes no difficulty walking in the grass. He is still using his cane occasionally but forgets it often now that his knee does not hurt. He feels he may have gotten all he can out of therapy and he called his surgeon to see if he can discontinue PT. He talked to the nurse practitioner and she said he needs to clear it with PT. Assessment PT Clinical Summary Terrence Mccoy has completed 5 skilled PT visits since undergoing a left total knee replacement on 11/28/23. 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 He was re- evaluated today and was able to achieve left knee AROM of 0-115 degrees prior to stretching. After stretching, he was able to achieve 121 degrees of flexion. He is demonstrating improved strength, improved gait, and improved balance. However, he has not been progressed to functional strengthening and can not easily achieve 0-120 degrees of left knee AROM. He is also still demonstrating decreased stair climbing ability. He will continue to benefit from skilled PT to further address ROM limitations and functional strength. Plan of Care Interventions Neuro Re-education,Patient/Caregiver Educati, Therapeutic Activities,Therapeutic Exercise PT Services Indicated Yes Treatment Frequency and 1 time a week for 3 more visits Duration These treatments will address the objective and functional deficits as defined above. The patient will be advanced safely and appropriately in order for the patient to progress towards his/her prior level of function. Additional exercises will be introduced and as well as a comprehensive home exercise program upon discharge, if needed, ?to ensure carryover of functional gains achieved in the clinic. This treatment plan has been reviewed and agreement upon by the patient.
--- NOTE | 2024-01-24 08:15 | PCPTNOTE ---
01/24/24: Pt cancelled today's visit on 01/23/24, no reason listed. -Citlaly Hernández, PT
--- NOTE | 2024-02-07 07:36 | OPREHPOC ---
Outpatient Therapy Plan of Care This is a Multidisciplinary Plan of Care that may contain components documented by all disciplines (PT, OT, and ST.) PT Problem 1 PT Problem #1 Knowledge Deficit PT Goal 1 Goal 1. independent and compliant with HEP Target Visit 4 Progress Met PT Problem 2 PT Problem #2 Pain PT Goal 1 Goal 1. no pain in the L knee Target Visit 8 Progress Partially Met PT Problem 3 PT Problem #3 Impaired Range of Motion PT Goal 1 Goal 1. 0-120 degrees active L knee rom Target Visit 8 Progress Met PT Problem 4 PT Problem #4 Impaired Strength PT Goal 1 Goal 1. 5/5 L knee strength 2. 5/5 L hip flexion with no extension lag of the L knee Target Visit 8 Progress Met PT Problem 5 PT Problem #5 Impaired Functional Mobil PT Goal 1 Goal 1. patient to ambulate on level surface with normal mechanics and no AD. 2. patient to ambulate up and down steps with reciprocal mechanics 3. LEFS to display less than 30% functional deficits 4. 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
--- NOTE | 2024-02-07 07:36 | PTOPDC ---
Assessment and note entered by Citlaly Hernández, PT Evaluation Information Assessment Status Discharge Diagnosis s/p L TKA Onset 11/28/23 Subjective Information Terrence Mccoy reports his left knee is doing well. He notes it is pain free most of the time except with prolonged sitting it will start to ache but that goes away when he gets up and moves around. He also notes stiffness first thing in the morning. 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 Reported Pain Level Pain Score 2: Self Report Assessment PT Clinical Summary Terrence Mccoy has completed 8 skilled PT visits since undergoing a left TKA on 11/28/23. He is reporting minimal to no pain and has been able to return to previous activity level without difficulty. He notes stiffness in the am and after prolonged sitting he is achy however, that resolves after moving around. He objectively demonstrates improved left knee AROM to functional ranges, improved left knee and hip strength, reciprocal stair negotiation, good endurance, and non-antalgic gait without an AD. He has a 25% self perceived disability per the LEFS. He will be discharged to an independent [facility]. Plan of Care PT Services Indicated No
== END 2024-02-07 08:24 | disposition home or self-care (01) ==
LOC: CHSPT 08:02
PROVIDERS: Visit Provider Orthopaedic Surgery
DX: Z47.1 Aftercare following joint replacement surgery (principal); Z96.652 Presence of left artificial knee joint
CPT/HCPCS: 97016; 97110; 97161; 97530; 97750

== ENCOUNTER 2024-11-19 08:25 | Outpatient (CLI) | payer MEDICARE, SELFPAY ==
--- NOTE | ~2024-11-19 | XR_ITS ---
EXAMINATION: XR knee LT 3V DATE: 11/19/2024 08:43 INDICATION: Left knee replacement. Follow-up. TECHNIQUE: 3 views of left knee were obtained. COMPARISON: Left knee radiographs 12/19/2023 FINDINGS: There is a total left knee arthroplasty without patellar resurfacing in near-anatomic align ment. No fracture. No periprosthetic lucency to suggest loosening or infection. There is a small knee joint effusion. IMPRESSION: 1. Total left knee arthroplasty in near-anatomic alignment. 2. Small left knee joint effusion. Reviewed, dictated and finalized at location [facility] [employer]
--- OUTSIDE RECORDS SUMMARY | 2024-11-19 08:42 | XMS_ITS ---
Author Organization Unknown Address [address] [place], [place] [id number] Phone Care Team Providers Care Equipment Operator Wage Hand Name Role Phone NATALIA BEST Attending Unavailable ANSLEY GE Primary Unavailable Immunization Immunization Date Status Additional Notes Code Code System pneumococcal polysaccharide PPV23 08/27/2016 Completed 33 CVX Tdap 04/02/2023 Completed 115 CVX Pneumococcal conjugate PCV 13 07/20/2018 Completed 133 CVX Influenza, high-dose, trivalent, PF 07/20/2018 Completed 135 CVX Influenza, high-dose, trivalent, PF 09/24/2019 Completed 135 CVX Influenza, split virus, quadrivalent, preservative 08/08/2016 Completed 158 C VX Influenza, split virus, quadrivalent, preservative 05/19/2017 Completed 158 C VX zoster recombinant 04/02/2023 Completed 187 CVX zoster recombinant 08/11/2023 Completed 187 CVX Influenza, high-dose, quadrivalent, PF 08/09/2020 Completed 197 CVX Influenza, high-dose, quadrivalent, PF 06/26/2022 Completed 197 CVX COVID-19, mRNA, LNP-S, PF, 3 0 mcg/0.3 mL dose 01/20/2021 Completed 208 CVX COVID-19, mRNA, LNP-S, PF, 3 0 mcg/0.3 mL dose 02/10/2021 Completed 208 CVX Pneumococcal conjugate PCV20 , polysaccharide [id number] conjugate, adjuvant, PF 08/11/2023 Completed 216 CVX Results CBC W/ DIFF - Collect Date/T lidya: 09/11/2023 18:54 [facility] ID: [id number] [address] [place], [place], [id number] LOINC: 25674-7 Test Value Unit Reference Range Code Code System Flag WBC 9.4 10^3uL L=4.8 H=10.8 RBC 4.87 10^6uL L=4.60 H=6.20 HEMOGLOBIN 14.2 g/dL L=14.0 H=18.0 718-7 LOINC HEMATOCRIT 43.1 VOL% L=42.0 H=52.0 4544-3 LOINC MCV 88.5 fL L=80.0 H=94.0 MCH 29.2 pg L=27.0 H=32.0 MCHC 32.9 g/dL L=32.0 H=36.0 PLATELETS 311 10^3uL L=100 H=400 73790-5 LOINC RDW 13.1 % L=11.7 H=15.5 %GRAN 51.8 % L=40.0 H=70.0 52725-3 LOINC %LYMPH 36.7 % L=20.0 H=45.0 736-9 LOINC %MONO 5.9 % L=2.0 H=10.0 23993-5 LOINC %EOS 4.7 % L=0.0 H=6.0 713-8 LOINC %BASO 0.3 % L=0.0 H=3.0 706-2 LOINC #NEUT 4.8 10^3uL L=1.9 H=7.6 78939-1 LOINC #LYMPH 3.4 10^3uL L=0.9 H=4.9 05107-7 LOINC #MONO 0.6 10^3uL L=0.1 H=0.9 13148-4 LOINC #EOS 0.4 10^3uL L=0.0 H=0.6 712-0 LOINC #BASO 0.03 10^3uL L=0.00 H=0.10 33498-2 LOINC #IM GRANS 0.1 10^3uL L=0.0 H=7.0 32047-2 LOINC %IM GRANS 0.6 % L=0.0 H=5.0 44811-2 LOINC %NRB 0.0 L=0.0 H=0.2 20084-2 LOINC #NRB 0.000 L=0.000 H=0.012 13995-2 LOINC MANUAL DIFF NOT INDICATED RBC MORPH NOT INDICATED COMPREHENSIVE METABOLIC PANE L - Collect Date/Time: 09/11/2023 18:54 [facility] ID: [id number] [address] [place], [place], [id number] LOINC: 96414-9 Test Value Unit Reference Range Code Code System Flag FASTING UNKNOWN BUN 21 mg/dL L=7 H=20 3094-0 LOINC H CREATININE 0.80 mg/dL L=0.66 H=1.25 2160-0 LOINC GLUCOSE 110 mg/dL L=74 H=106 2345-7 LOINC H SODIUM 142 mmol/L L=132 H=144 2951-2 LOINC POTASSIUM 3.4 mmol/L L=3.5 H=5.1 2823-3 LOINC L CHLORIDE 106 mmol/L L=98 H=107 2075-0 LOINC CO2 26.0 mmol/L L=22.0 H=30.0 2028-9 LOINC ANION GAP 13 L=10 H=20 44011-9 LOINC OSMOLALITY 298 mOs/kG L=280 H=296 85556-0 LOINC H BUN/CREAT 26.3 3097-3 LOINC CALCIUM 9.4 mg/dL L=8.3 H=10.5 09380-7 LOINC AST 24 U/L L=15 H=46 1920-8 LOINC ALT 22 U/L L=9 H=72 1742-6 LOINC ALKALINE PHOS 95 U/L L=38 H=126 6768-6 LOINC TOTAL BILI 0.6 mg/dL L=0.2 H=1.3 1975-2 LOINC ALBUMIN 4.3 G/dL L=3.5 H=5.0 1751-7 LOINC TOTAL PROTEIN 7.8 g/L L=6.3 H=8.2 2885-2 LOINC A/G RATIO 1.2 89836-6 LOINC AGE 68 79334-3 LOINC eGFR NON-AFR 102 ml/min eGFR AFR AMER 123 ml/min URINALYSIS w/Microscopy/C&S if indicated - Collect Date/Time: 09/11/2023 18:30 [facility] ID: [id number] [address] [place], [place], [id number] LOINC: 39014-2 Test Value Unit Reference Range Code Code System Flag UR SOURCE UNKNOWN 48764-5 LOINC COLOR RED YELLOW 5778-6 LOINC A CLARITY TURBID CLEAR 58540-5 LOINC A SPEC GRAVITY 1.015 1.000-1.030 5811-5 LOINC PH 7.0 5.0 - 6.5 5803-2 LOINC LEUK EST 2+ NEGATIVE 5799-2 LOINC A NITRATE POSITIVE NEGATIVE A PROTEIN 3+ NEGATIVE 5804-0 LOINC A GLUCOSE TRACE NEGATIVE 19539-2 LOINC KETONES 1+ NEGATIVE 80828-1 LOINC A UROBILINOGEN >=8.0 NEGATIVE 5818-0 LOINC BILIRUBIN 3+ NEGATIVE 78369-5 LOINC A BLOOD 3+ NEGATIVE 85504-0 LOINC WBC 10-20 0 - 2 64400-3 LOINC A RBC TNTC 0 - 2 88679-8 LOINC A EPITHELIAL RARE RARE-FEW 43025-8 LOINC BACTERIA 4+ NONE SEEN 99171-1 LOINC A MUCUS NONE SEEN NONE SEEN 8247-9 LOINC YEAST NOT PRESENT NOT PRESENT 78042-9 LOINC CASTS NONE SEEN 25555-0 LOINC CRYSTALS NONE SEEN 34983-5 LOINC CULTURE? YES 8251-1 LOINC DIAGNOSIS ABN LAB RESU Social History Type Status Start Date End Date Code Code Syst em Smoking History Never smoker (Never Smoked) 251561902 SNOMED CT Sex Male Hospital Discharge Instructions Should you have any questions prior to discharge, please contact a member of your healthcare team. If you have left the hospital and have any questions, please contact your primary care physician. Reason For Referral No Data Found Implants Implanted GAYLE Status Assigning Authority Procedure Date Lot Number Serial Number Manufacturing Date Expiration Date Distinct ID Code Brand Name Model Number [employer] Active XCAPSL CTRC RMVL INSJ IO LENS PROSTH W/O ECP 04/28 [id number] 03/24/2024 [employer] +17.0D Allergies and Adverse Reactions Allergy Substance Reaction Severity Start Date Concern Status Co de Code System No Known Drug Allergies Active [id number] SNOMED-CT Plan of Treatment Cataract Extraction w/ IOL R 04/28/2021 COVID-19 Pre-op Screen 04/26/2021 Cataract Extraction w/ IOL L 05/12/2021 COVID-19 Pre-op Screen 05/10/2021 Encounters Encounter Diagnosis Start Date Code Code Sys tem Acute cystitis with hematuria 09/11/2023 SNOMED-CT Personal Care Team Section Performer Name Performer Role Active Date Inactive Da te
== END 2024-11-19 08:26 | disposition home or self-care (01) ==
LOC: CHSIMG 08:27
PROVIDERS: PCP Internal Medicine; Visit Provider Orthopaedic Surgery
DX: M25.562 Pain in left knee (principal); Z96.652 Presence of left artificial knee joint; M25.462 Effusion, left knee
CPT/HCPCS: 73562

== ENCOUNTER 2025-04-26 19:50 | Outpatient (CLI) | payer MEDICARE, SELFPAY ==
--- OUTSIDE RECORDS SUMMARY | 2025-04-26 19:56 | XMS_ITS | Encounter Summary ---
Author Organization [facility] Address [facility] [place] [address] Care Team Providers Care Mortgage Analyst Name Role Phone Filippo Salinas MD Primary Care Provider [phone] Moy Caballero MD Unavailable Unavailab Joseph Garland MD Primary Care Provider [phone] Filippo Salinas MD Primary Care Provider [phone] Kevin Gloria MD Unavailable Unavailable Chris Austin MD Unavailable [phone] Lynda Silva APRN, WALL TO WALL CARPET INSTALLER-C Unavailable [phone] Roc Ocampo MD Unavailable [phone] Jc Dotson MD Unavailable [phone] Encounter Details Date Type Department Care Team (Late Contact Info) Description 01/16/2013 Abstract [facility] AT [address] [address] Moy Caballero MD Social History Tobacco Use Types Packs/Day Years Used Date Smoking Tobacco: Never Alcohol Use Standard Drinks/Week Comments Yes 0 (1 standard drink = 0.6 oz pur e alcohol) Rare Sex and Gender Information Value Date Recorded Sex Assigned at Not on file Legal Sex Male 6:59 PM CDT Gender Identity Not on file Sexual Orientation Not on file Occupation Industry Job Start Date Job End Date Disabled Not on file Not on file Not on file documented as of this encounter Plan of Treatment Upcoming Encounters Date Type Department Care Team (Late st Contact Info) Description 07/14/2025 8:30 AM CDT Office Visit [facility] [address] [place] [phone] Lynda Silva APRN, [employer] TO [employer] CARPET INSTALLER-C [address] [facility] [address] [place] [phone] documented as of this encounter Visit Diagnoses Not on filedocumented in this encounter Care Teams Mortgage Analyst Relationship Specialty Start Date End Date Filippo Salinas MD [address] [place] [address] PCP - General INTERNAL MEDICINE 04/25/16 06/15/16 Joseph Mccabe MD [address] [place] [address] PCP - General INTERNAL MEDICINE 06/16/16 07/27/16 Filippo Salinas MD [address] [place] [address] PCP - General INTERNAL MEDICINE 07/29/16 Moy Caballero MD [address] [place] [address] CARDIOVASCULAR DISEASE 04/25/16 09/30/18 Kevin Gloria MD [address] [place] [address] SURGERY 08/04/16 05/01/24 Chris Austin MD [address] [place] [address] Consulting Physician CARDIOVASCULAR DISEASE 10/01/18 Lynda Silva APRN, [employer] CARPET INSTALLER-C [address] [facility] [address] [place] [address] NURSE PRACTITIONER 05/19/21 Roc Ocampo MD [address] [place], [place] [id number] Referring Physician ORTHOPAEDIC SURGERY 07/10/23 Jc Dotson MD [address] [place] [address] INTERVENTIONAL CARDIOLOGY 07/11/24 documented as of this encounter
--- OUTSIDE RECORDS SUMMARY | 2025-04-26 19:56 | XMS_ITS | Encounter Summary ---
Author Organization [facility] Address [address] [place] [address] Care Team Providers Care Public Utilities Sales Representative Name Role Phone Moy Caballero MD Unavailable Unavailab Filippo De La Torre MD Primary Care Provider [phone] Kevin Gloria MD Unavailable Unavailable Chris Austin MD Unavailable [phone] Lynda Silva APRN, NP-C Unavailable [phone] Roc Ocampo MD Unavailable [phone] Jc Dotson MD Unavailable [phone] Encounter Details Date Type Department Care Team (Late st Contact Info) Description 10/14/2016 Abstract [facility] AT [facility] [address] [place] [phone] Moy Caballero MD Social History Tobacco Use Types Packs/Day Years Used Date Smoking Tobacco: Never Smokeless Tobacco: Never Alcohol Use Standard Drinks/Week Comments [...] 07/14/2025 8:30 AM CDT [facility] [address] [place] [address] Lynda Silva APRN, CLINIC PHYSICIAN-C [address] [address] documented as of this encounter Visit Diagnoses Not on filedocumented in this encounter Care Teams Public Utilities Sales Representative Relationship Specialty Start Date End Date Filippo Salinas MD [address] [place] [phone] PCP - General INTERNAL MEDICINE 07/29/16 Moy Caballero MD CARDIOVASCULAR DISEASE 04/25/16 09/30/18 Kevin Gloria MD [address] [place] [address] SURGERY 08/04/16 05/01/24 Chris Austin MD [address] [place] [address] Consulting Physician CARDIOVASCULAR DISEASE 10/01/18 Lynda Silva APRN, CLINIC PHYSICIAN-C [address] [address] NURSE PRACTITIONER 05/19/21 Roc Ocampo MD [address] [place] [address] Referring Physician ORTHOPAEDIC SURGERY 07/10/23 Jc Dotson MD [address] [place] [address] INTERVENTIONAL CARDIOLOGY 07/11/24 documented as of this encounter
--- OUTSIDE RECORDS SUMMARY | 2025-04-26 19:56 | XMS_ITS | Clinical Summary ---
Author Organization [facility] Address [address] [place] [address] Care Team Providers Care Faculty Support Coordinator Name Role Phone Filippo Salinas MD Primary Care Provider [phone] Lynda Silva APRN, PERINATAL SPECIALIST-C Unavailable [phone] Roc Ocampo MD Unavailable [phone] Jc Dotson MD Unavailable [phone] Allergies No known active allergies Medications tamsulosin (FLOMAX) 0.4 MG Cap Take 1 tablet by mouth daily. 04/26/2012 Active lisinopril 20 MG tabletIndication s:S/P AVR (aortic valve replacement) Take 1 tablet (20 mg total) by mouth daily. 30 tablet 1 08/27/2016 Active aspirin EC (ECOTRIN) 81 MG tablet Take 1 tablet (81 mg total) by mouth daily. Active furosemide 40 MG tablet Take 1 tablet (40 mg total) by mouth daily. 90 tablet 3 12/18/2018 Active carvedilol 12.5 MG tablet Take 1 tablet (12.5 mg total) by mouth 2 (two) times daily. 180 tablet 3 12/18/2018 Active CPAP MACHINE Active atorvastatin (LIPITOR) 40 MG tablet Take 1 tablet (40 mg total) by mouth daily. 90 tablet 3 07/11/2024 Active Active Problems Problem Noted Date Diagnosed Date Mild CAD 06/24/2021 S/P mitral valve replacement 08/26/2016 Mitral valve regurgitation 08/04/2016 Anemia Hyperlipidemia Hypertension Obstructive sleep apnea on CPAP Overview (05/04/2016): CPAP for sleep apnea. Murmur, cardiac Colon cancer ([facility]) Overview (07/21/2022): left hemicolectomy, no chemo or radiation Family History Medical History Relation Comments Heart Attack Brother 1 [place] Open Heart Brother 1 Stent Cardiac Brother 1 pacemaker Brother 1 Heart Attack Brother 2 Relation Status Comments Brother 1 Brother 2 (Age 43) Sister Social History Tobacco Use Types Packs/Day Years Used Date Smoking Tobacco: Never Smokeless Tobacco: Never Tobacco Cessation:Counseling Given: Not Answered Alcohol Use Standard Drinks/Week Comments Not Currently 0 (1 standard drink = 0.6 oz pur e alcohol) once per month AUDIT-C Answer Date Recorded Frequency of Alcohol Consumption Monthly or less 09/11/2018 Average Number of Drinks 1 or 2 018 Frequency of Binge Drinking Never 08/25 Sex and Gender Information Value Date Recorded Sex Assigned at Not on file Legal Sex Male 6:59 PM CDT Gender Identity Not on file Sexual Orientation Not on file Occupation Industry Job Start Date Job End Date Disabled Not on file Not on file Not on file Last Filed Vital Signs Vital Sign Reading Time Taken Comments Blood Pressure 142/90 07/11/2024 1:25 PM CDT Pulse 87 07/11/2024 1:25 PM CDT Temperature 36.3 C (97.3 F) 09/30/2022 9:40 AM HEAD ANIMAL KEEPER Respiratory Rate 16 07/11/2024 1:25 PM CDT Oxygen Saturation 95% 07/11/2024 1:25 PM CDT Inhaled Oxygen Concentration - - Weight 117.5 kg (259 lb) 07/11/2024 1:25 PM CDT Height 177.8 cm (5' 10) 07/11/2024 1:25 PM CDT Body Mass Index 37.16 07/11/2024 1:25 PM CDT Plan of Treatment Upcoming Encounters Date Type Department Care Team ([facility] Contact Info) Description 07/14/2025 8:30 AM CDT Office Visit [facility] [address] [place] [address] Lynda Silva, CENTRAL OFFICE REPAIRER, PERINATAL SPECIALIST-C [address] [facility] [address] [place] [address] Health Maintenance Due Date Last Done Comments Hepatitis C 1971 RSV Immunization or 60+ Years (1 - Risk 60-74 years 1-dose series) 2013 Annual Medicare Wellness Visit 2018 COVID-19 Vaccine (3 - 2023-2 5 season) 2024 02/10/2021, 01/20/2021 DTaP, Tdap and Td Vaccines ( 2 - Td or Tdap) 04/02/2033 04/02/2023 Colorectal Cancer Screening Colonoscopy (10 Years) Discontinued 09/30/2022, 09/30/2022 Pneumococcal Vaccine: 50+ Years Completed 08/11/2023, 07/20/2018, 08/27/2016 Zoster Vaccines Completed 08/11/2023, 04/02/2023 Meningococcal B Vaccine Aged Out No l onger eligible based on patient's age to complete this topic Meningococcal Vaccine Aged Out No dayanara kylah eligible based on patient's age to complete this topic RSV Immunizations Under 20 Months Aged Out No longer eligible based on patient's age to complete this topic Procedures Procedure Name Priority Date/Time Associated Diagnosis Comments COLONOSCOPY Routine 09/30/2022 7:06 AM HEAD ANIMAL KEEPER from Last 3 Months or Most Recently Relevant to Health Maintenance Results * Colonoscopy (09/30/2022 7:06 AM HEAD ANIMAL KEEPER) Jagdeep Byrne MD GI PROCEDURE ORDERABLES Final Re sult from Last 3 Months or Most Recently Relevant to Health Maintenance Insurance MEDICARE [facility] Care Teams Faculty Support Coordinator Relationship Specialty Start Date End Date Filippo Salinas MD [address] [place] [address] PCP - General INTERNAL MEDICINE 07/29/16 Lynda Silva APRN, PERINATAL SPECIALIST-C [address] [facility] [address] [place] [address] NURSE PRACTITIONER 05/19/21 Roc Ocampo MD [address] [place] [address] Referring Physician ORTHOPAEDIC SURGERY 07/10/23 Jc Dotson MD [address] [place] [address] INTERVENTIONAL CARDIOLOGY 07/11/24
--- OUTSIDE RECORDS SUMMARY | 2025-04-26 19:56 | XMS_ITS | Encounter Summary ---
Author Organization [facility] Address [address] [place] [address] Care Team Providers Care Bending Press Operator Name Role Phone Filippo Salinas MD Primary Care Provider [phone] Kevin Gloria MD Unavailable Unavailable Chris Austin MD Unavailable [phone] Lynda Silva APRN, HARD CANDY BATCH MIXER-C Unavailable [phone] Roc Ocampo MD Unavailable [phone] Jc Dotson MD Unavailable [phone] Encounter Details Date Type Department Care Team (Late st Contact Info) Description 03/02/2019 Abstract SFL CONVERSION [address] [place] [address] , Generic Conversion, Social History Tobacco Use Types Packs/Day Years [...] 07/14/2025 8:30 AM CDT [facility] [address] [place] [address] Lynda Silva APRN, HARD CANDY BATCH MIXER-C [address] [phone] documented as of this encounter Visit Diagnoses Not on filedocumented in this encounter Care Teams Bending Press Operator Relationship Specialty Start Date End Date Filippo Salinas MD [address] [place] [phone] PCP - General INTERNAL MEDICINE 07/29/16 Kevin Gloria MD [address] [place] [address] SURGERY 08/04/16 05/01/24 Chris Austin MD [address] [place] [address] Consulting Physician CARDIOVASCULAR DISEASE 10/01/18 Lynda Silva APRN, HARD CANDY BATCH MIXER-C [address] [address] NURSE PRACTITIONER 05/19/21 Roc Ocampo MD [address] [place] [address] Referring Physician ORTHOPAEDIC SURGERY 07/10/23 Jc Dotson MD [address] [place] [address] INTERVENTIONAL CARDIOLOGY 07/11/24 documented as of this encounter
--- NOTE | 2025-05-19 13:35 | WPDSLEEPSTUD ---
Sleep Study Date of Study: 04/26/25 Ordering Provider: Filippo Salinas MD Interpreting Physician: Vandana Brandon DO Sleep Study Type: Split Polysomnogram Height: 1.78 m Weight: 112.491 kg Body Mass Index: 35.6 Neck Circumference (inches): 17 [place]: 4 Reason for Sleep Study Previously diagnosed sleep apnea Sleep History The patient is a 69-year-old male that had a sleep study ordered by his primary care physician for evaluation of sleep apnea. The patient was previously diagnosed with sleep apnea and has been using a CPAP machine. He denies awakening from sleep short of breath. He rarely awakens at night with heartburn, belching, or cough. He occasionally snores, but it is rarely loud enough that others complain. He rarely has trouble sleeping when he has a cold. He denies waking up gasping for air throughout the night. He denies having breathing problems at night observed by himself or others. He occasionally sweats excessively at night. He rarely has heart palpitations or irregular heartbeats during the night. He frequently falls asleep during the day, but never while driving. He denies sleep paralysis, cataplexy, and hypnagogic-hypnopompic hallucinations. He denies having trouble at school or work due to sleepiness. He denies feeling afraid of going to sleep. He denies having nightmares. He rarely remembers his dreams. He occasionally has thoughts racing through his mind. He denies feeling sad or depressed. He denies having anxiety. He denies having muscular tension. He denies noticing parts of his body jerk. He frequently kicks during the night. He occasionally has crawling and aching feelings in his legs and occasionally has leg pain during the night. He denies grinding his teeth during sleep and denies awakening with morning jaw pain. He is occasionally bothered by pain during the day and occasionally awakened by pain during the night. He rarely wakes up feeling stiff in the morning. He occasionally wakes up with sore or achy muscles. He rarely wakes up with pain in the neck, spine, and other joints. He goes to bed between 9 to 10 p.m. on weekdays and at 10 p.m. on the weekends. It takes him 15 to 30 minutes to fall asleep. He wakes up 1 to 3 times throughout the night for unknown reasons, and it can take him 10 to 20 minutes to fall back asleep. He wakes up at 4 a.m. on weekdays and at 5 a.m. on the weekends. He typically gets 6 hours of sleep per night. He will stay in bed for 5 minutes after waking up in the morning. He will consume a caffeinated beverage within 2 hours of bedtime. He denies engaging in physical exercise before bedtime. He will read and watch television before falling asleep. He will occasionally take naps in the afternoon, and they are refreshing. He consumes 4 caffeinated beverages per day. [facility]LY [facility] Past Medical History Medical History CHF (congestive heart failure) Atrial fibrillation Thyroid nodule CAD (coronary artery disease) Sleep apnea Enlarged prostate Hyperlipidemia Hypertension Colon cancer Left knee DJD Right knee DJD Surgical History Surgical History H/O hernia repair Heart valve transplanted Family History Family History Unknown Hypertension Heart disease Diabetes mellitus Social History Social History Smoking status: Never smoker Alcohol intake: never Substance use: never Substance use type: does not use Do You Feel Safe in your Home?: Yes Lack of Transportation: No Lack of Food: Never True Current Housing: I Have Housing Concerned About Future Housing: No Difficulty Paying Gas/Electric Bills: No Difficulty Paying for Meds: No Currently Unemployed: No Education: Decline to Answer Difficulty w/ Childcare or Family Care: No Living arrangements: with family Additional living arrangements comments: Occupation/Education: retired Gender identity (if verbalized by the patient): Male Spiritual care concerns: No (Hindu) Medications Home Medications ?Medication ?Instructions ?Recorded ?Confirmed ?Type aspirin 81 mg capsule 81 mg PO DAILY 05/23/23 03/12/24 History Held on 11/29/23. Instructions: HOLD FOR 3 WEEKS THEN RESUME atorvastatin 20 mg tablet 20 mg PO DAILY 08/29/23 06/18/24 History carvedilol 12.5 mg tablet 12.5 mg PO Q12H 05/23/23 03/12/24 History furosemide 40 mg tablet 40 mg PO QAM 05/23/23 03/12/24 History lisinopril 20 mg tablet 20 mg PO QAM 05/23/23 03/12/24 History tamsulosin 0.4 mg capsule 0.4 mg PO QAM 05/23/23 03/12/24 History psyllium husk 0.4 gram capsule 0.8 g PO DAILY 11/14/23 03/12/24 History (Metamucil) aspirin 325 mg tablet 325 mg PO BID DVT PROPHYLAXIS 3 11/29/23 03/12/24 Rx weeks #42 tabs oxycodone-acetaminophen 5 mg-325 1 tablet PO Q6H PRN pain #30 tabs 12/06/23 03/12/24 Rx mg tablet (Percocet) Sleep Procedure A full night split study using the Asterisk multi-channel system recorded the standard physiologic parameters including EEG, EOG, submentalis EMG, anterior tibialis EMG, EKG, body position, nasal and oral airflow using nasal pressure sensor and thermistor.? Respiratory parameters of chest and abdominal movements were recorded with Respiratory Inductance Plethysmography belts. Oxygen saturation was recorded by pulse oximetry. Video monitoring was also performed. Sleep stages, periodic limb movements, and EEG arousals were scored in 30 second epochs according to the criteria of the AASM Scoring Manual. The Apnea-Hypopnea Index was calculated using CMS guidelines for definition of hypopnea with 4% O2 desaturations while scoring respiratory events. Sleep Architecture During the diagnostic portion of the study, the total recording time was 162.6 minutes. The total sleep time was 126.0 minutes. Sleep latency was 7.0 minutes.? REM latency was 98.5 minutes. Sleep Efficiency was 77.5%. The patient had 6 awakenings for an awakening index of 2.9. Wake after sleep onset time was 29.5 minutes. The patient spent 11.5 minutes, 9.1% of total sleep time in Stage N1. The patient spent 82.5 minutes, 65.5% in Stage N2. The patient spent 0.0 minutes, 0.0% in Stage N3. The patient spent 32.0 minutes, 25.4% in Stage REM sleep. At 12:42:32 AM the patient was placed on PAP treatment and was titrated at pressures ranging from 5 cm H20 up to 14 cm H20 with EPR of 2. During the treatment portion of the study, the total recording time was 316.4 minutes.? The total sleep time was 217.0 minutes. Sleep latency was 42.5 minutes. REM latency was 57.5 minutes. Sleep Efficiency was 68.6%. Wake after Sleep Onset time was 56.5 minutes. The patient spent 22.0 minutes, 10.1% of total sleep time in Stage N1. The patient spent 117.5 minutes, 54.1% in Stage N2. The patient spent 25.0 minutes, 11.5% in Stage N3. The patient spent 52.5 minutes, 24.2% in Stage REM. Respiratory Analysis During the diagnostic portion of the study, the patient had 35 hypopneas for an overall Apnea Hypopnea Index of 16.7 events per hour. The REM Apnea Hypopnea Index was 39.4. The NREM Apnea Hypopnea Index was 9.6. The patient had a Central Apnea Hypopnea Index of 0. There was no evidence of Deshaun-Mcelroy Respirations. During the treatment portion of the study, the patient had 8 hypopneas and 1 central apnea for an overall Apnea Hypopnea Index of 2.5 events per hour. The REM Apnea Hypopnea Index was 5.7. The NREM Apnea Hypopnea Index was 1.5. The patient had a Central Apnea Hypopnea Index of 0.3. There was no evidence of Deshaun-Mcelroy Respirations. The patient was started on CPAP 5 cm H2O and titrated to CPAP 14 cm H2O with EPR of 2. The patient was able to fall asleep starting on CPAP 6 cm H2O. The patient was able to achieve REM sleep starting on CPAP 7 cm H2O. The patient was able to achieve a residual AHI less than 5 with both NREM and REM sleep on CPAP 11 cm H2O with EPR of 2. On CPAP 11 cm H2O with EPR of 2, the patient spent 12 minutes in NREM and 15.5 minutes in REM with 1 hypopnea, resulting in an AHI of 2.2. On CPAP 12 cm H2O with EPR of 2, the patient spent 34.5 minutes in NREM with 2 hypopneas, resulting in an AHI of 3.5. The patient had a sleep efficiency of 84.6% on 11 cm H2O and 95.8% on 12 cm H2O. Arousals During the diagnostic portion of the study, there were a total of 27 arousals for an arousal index of 12.9.? There were 6 respiratory arousals for an index of 2.9. There were 8 periodic limb movement arousals for an index of 3.8.? There were 0 isolated limb movement arousals for an index of 0. There were 13 spontaneous arousals for an index of 6.2. During the treatment portion of the study, there were a total of 53 arousals for an index of 14.7.? There were 3 respiratory arousals for an index of 0.8. There were 9 periodic limb movement arousals for an index of 2.5.? There was 1 isolated limb movement arousals for an index of 0.3. There were 40 spontaneous arousals for an index of 11.1. Periodic Limb Movements During the diagnostic portion of the study, the patient had 3 isolated limb movements with an index of 1.4. The patient had 137 periodic limb movements with an index of 65.2, which is elevated (normal < 15). The patient had a total of 140 limb movements with a total limb movement index of 66.7. During the treatment portion of the study, the patient had 10 isolated limb movements with an index of 2.8. The patient had 46 periodic limb movements with an index of 12.7. The patient had a total of 56 limb movements with a total limb movement index of 15.5. Oximetry Data During the diagnostic portion of the study, the patient had an average oxygen saturation of 92% in wake with a minimum oxygen saturation of 88% and a maximum oxygen saturation of 96%. The patient had an average oxygen saturation of 90.6% in sleep with a minimum oxygen saturation of 81.0% and a maximum oxygen saturation of 95.0%. The patient had 59 oxygen desaturations resulting in an Oxygen Desaturation Index of 28.1. The patient spent 10.3 minutes, 6.6% of total sleep time with an oxygen saturation less than 88%. During the treatment portion of the study, the patient had an average oxygen saturation of 92.8% in wake with a minimum oxygen saturation of 87.0% and a maximum oxygen saturation of 98.0%. The patient had an average oxygen saturation of 91.7% in sleep with a minimum oxygen saturation of 87.0% and a maximum oxygen saturation of 97.0%. The patient had 46 oxygen desaturations resulting in an Oxygen Desaturation Index of 12.7. The patient spent 3.9 minutes, 1.2% of total sleep time with an oxygen saturation less than 88%. Snoring Profile Mild to moderate snoring was present intermittently in the baseline portion of the study. The snoring resolved once the patient was titrated to CPAP 10 cm H2O. Cardiac Profile The EKG lead showed normal sinus rhythm. No arrhythmias or premature beats were seen. During the diagnostic portion of the study, the average pulse rate was 76.5 bpm.? The minimum pulse rate was 67.0 bpm. The maximum pulse rate was 85.0 bpm. During the treatment portion of the study, the average pulse rate was 67.1 bpm.? The minimum pulse rate was 59.0 bpm. The maximum pulse rate was 83.0 bpm. EEG Profile No signs of seizure activity seen. Assessment and Plan Assessment and Plan (1) TED (obstructive sleep apnea): Code(s): G47.33 - Obstructive sleep apnea (adult) (pediatric) Status: Acute Assessment and Plan: In the baseline portion of the study, the patient had an overall AHI of 16.7 with desaturation down to 81%. This is consistent with moderate sleep apnea. The patient was started on CPAP 5 cm H2O and titrated to CPAP 14 cm H2O with EPR of 2. We were able to find a pressure that resolved the patient's sleep apnea. I recommend that the patient be prescribed CPAP 12 cm H2O with EPR of 2, size large Resmed AirFit F20 full face mask, CPAP filters/tubing and heated humidity. This should be used with all episodes of sleep.? Compliance should be reviewed within 31-90 days of starting therapy for usage greater than 4 hours per night greater than 70% of the nights. The patient should be asked about symptoms such as?excessive daytime sleepiness, quality of sleep, decreased nocturia, increased?mental functioning such as memory, mood, and concentration. The patient's sleep history is suggestive of Restless Leg Syndrome. I recommend that the patient have a serum ferritin drawn for evaluation of iron deficiency anemia. If the patient has a serum ferritin less than 75 ng/mL, I recommend starting a daily iron supplement and a Vitamin C supplement for better absorption. If the serum ferritin is greater than 75 ng/mL, I recommend starting a dopamine agonist and titrating the dose until symptoms resolve. There are nonpharmacological methods to treat limb movements including daily exercise, stretching calf muscles before bed, avoiding excessive amounts of caffeine and alcohol, vitamin B supplementation, magnesium lotion massaged into legs before bed, and use of a weighted blanket. Data The data obtained during this sleep study is adequate for interpretation. Certification This sleep study has been reviewed by a board certified sleep medicine physician.
--- NOTE | 2025-05-27 09:04 | WPDSLEEPSTUD ---
Sleep Study Date of Study: 04/26/25 Ordering Provider: Filippo Salinas MD Interpreting Physician: Luann Murphy MD Sleep Study Type: Split Polysomnogram Height: 1.78 m Weight: 112.491 kg Body Mass Index: 35.6 Neck Circumference (inches): 17 Luther: 4 Reason for Sleep Study history of obstructive sleep apnea, 04/26/2025 had a split night study with moderate severity, AHI 16 and desaturaiton to ... no oprimal pressure founds ??? was this split or titraiton? Sleep History THis history is taken from the 04/26/2025 sleep questionnaire. Terrence Mccoy is a 69-year-old male wit carter history of obstructive sleep apnea, and he has been using CPAP. He denies awakening from sleep short of breath. He rarely awakens at night with heartburn, belching, or cough. He occasionally snores, but it is rarely loud enough that others complain. He rarely has trouble sleeping when he has a cold. He denies waking up gasping for air throughout the night. He denies having breathing problems at night observed by himself or others. He occasionally sweats excessively at night. He rarely has heart palpitations or irregular heartbeats during the night. He frequently falls asleep during the day, but never while driving. He denies sleep paralysis, cataplexy, and hypnagogic-hypnopompic hallucinations. He denies having trouble at school or work due to sleepiness. He denies feeling afraid of going to sleep. He denies having nightmares. He rarely remembers his dreams. He occasionally has thoughts racing through his mind. He denies feeling sad or depressed. He denies having anxiety. He denies having muscular tension. He denies noticing parts of his body jerk. He frequently kicks during the night. He occasionally has crawling and aching feelings in his legs and occasionally has leg pain during the night. He denies grinding his teeth during sleep and denies awakening with morning jaw pain. He is occasionally bothered by pain during the day and occasionally awakened by pain during the night. He rarely wakes up feeling stiff in the morning. He occasionally wakes up with sore or achy muscles. He rarely wakes up with pain in the neck, spine, and other joints. He goes to bed between 9 to 10 p.m. on weekdays and at 10 p.m. on the weekends. It takes him 15 to 30 minutes to fall asleep. He wakes up 1 to 3 times throughout the night for unknown reasons, and it can take him 10 to 20 minutes to fall back asleep. He wakes up at 4 a.m. on weekdays and at 5 a.m. on the weekends. He typically gets 6 hours of sleep per night. He will stay in bed for 5 minutes after waking up in the morning. He will consume a caffeinated beverage within 2 hours of bedtime. He denies engaging in physical exercise before bedtime. He will read and watch television before falling asleep. He will occasionally take naps in the afternoon, and they are refreshing. He consumes 4 caffeinated beverages per day. [facility] Past Medical History Medical History CHF (congestive heart failure) Atrial fibrillation Thyroid nodule CAD (coronary artery disease) Sleep apnea Enlarged prostate Hyperlipidemia Hypertension Colon cancer Left knee DJD Right knee DJD Surgical History Surgical History H/O hernia repair Heart valve transplanted Family History Family History Unknown Hypertension Heart disease Diabetes mellitus Social History Social History Smoking status: Never smoker Alcohol intake: never Substance use: never Substance use type: does not use Do You Feel Safe in your Home?: Yes Lack of Transportation: No Lack of Food: Never True Current Housing: I Have Housing Concerned About Future Housing: No Difficulty Paying Gas/Electric Bills: No Difficulty Paying for Meds: No Currently Unemployed: No Education: Decline to Answer Difficulty w/ Childcare or Family Care: No Living arrangements: with family Additional living arrangements comments: Occupation/Education: retired Gender identity (if verbalized by the patient): Male Spiritual care concerns: No (Rastafarian) Medications Home Medications ?Medication ?Instructions ?Recorded ?Confirmed ?Type aspirin 81 mg capsule 81 mg PO DAILY 05/23/23 03/12/24 History Held on 11/29/23. Instructions: HOLD FOR 3 WEEKS THEN RESUME atorvastatin 20 mg tablet 20 mg PO DAILY 05/23/23 03/12/24 History carvedilol 12.5 mg tablet 12.5 mg PO Q12H 05/23/23 03/12/24 History furosemide 40 mg tablet 40 mg PO QAM 05/23/23 03/12/24 History lisinopril 20 mg tablet 20 mg PO QAM 05/23/23 03/12/24 History tamsulosin 0.4 mg capsule 0.4 mg PO QAM 05/23/23 03/12/24 History psyllium husk 0.4 gram capsule 0.8 g PO DAILY 11/14/23 03/12/24 History (Metamucil) aspirin 325 mg tablet 325 mg PO BID DVT PROPHYLAXIS 3 11/29/23 03/12/24 Rx weeks #42 tabs oxycodone-acetaminophen 5 mg-325 1 tablet PO Q6H PRN pain #30 tabs 12/06/23 03/12/24 Rx mg tablet (Percocet) Assessment and Plan Assessment and Plan (1) TED (obstructive sleep apnea): Code(s): G47.33 - Obstructive sleep apnea (adult) (pediatric) Status: Acute Assessment and Plan: <del>In</del> <del>the</del> <del>baseline</del> <del>portion</del> <del>of</del> <del>the</del> <del>study,</del> <del>the</del> <del>patient</del> <del>had</del> <del>an</del> <del>overall</del> <del>AHI</del> <del>of</del> <del>16.7</del> <del>with</del> <del>desaturation</del> <del>down</del> <del>to</del> <del>81%.</del> <del>This</del> <del>is</del> <del>consistent</del> <del>with</del> <del>moderate</del> <del>sleep</del> <del>apnea.</del> <del>The</del> <del>patient</del> <del>was</del> <del>started</del> <del>on</del> <del>CPAP</del> <del>5</del> <del>cm</del> <del>H2O</del> <del>and</del> <del>titrated</del> <del>to</del> <del>CPAP</del> <del>14</del> <del>cm</del> <del>H2O</del> <del>with</del> <del>EPR</del> <del>of</del> <del>2.</del> <del>We</del> <del>were</del> <del>able</del> <del>to</del> <del>find</del> <del>a</del> <del>pressure</del> <del>that</del> <del>resolved</del> <del>the</del> <del>patient's</del> <del>sleep</del> <del>apnea.</del> <del>I</del> <del>recommend</del> <del>that</del> <del>the</del> <del>patient</del> <del>be</del> <del>prescribed</del> <del>CPAP</del> <del>12</del> <del>cm</del> <del>H2O</del> <del>with</del> <del>EPR</del> <del>of</del> <del>2,</del> <del>size</del> <del>large</del> <del>Resmed</del> <del>AirFit</del> <del>F20</del> <del>full</del> <del>face</del> <del>mask,</del> <del>CPAP</del> <del>filters/tubing</del> <del>and</del> <del>heated</del> <del>humidity.</del> <del>This</del> <del>should</del> <del>be</del> <del>used</del> <del>with</del> <del>all</del> <del>episodes</del> <del>of</del> <del>sleep.?</del> <del>Compliance</del> <del>should</del> <del>be</del> <del>reviewed</del> <del>within</del> <del>31-90</del> <del>days</del> <del>of</del> <del>starting</del> <del>therapy</del> <del>for</del> <del>usage</del> <del>greater</del> <del>than</del> <del>4</del> <del>hours</del> <del>per</del> <del>night</del> <del>greater</del> <del>than</del> <del>70%</del> <del>of</del> <del>the</del> <del>nights.</del> <del>The</del> <del>patient</del> <del>should</del> <del>be</del> <del>asked</del> <del>about</del> <del>symptoms</del> <del>such</del> <del>as?excessive</del> <del>daytime</del> <del>sleepiness,</del> <del>quality</del> <del>of</del> <del>sleep,</del> <del>decreased</del> <del>nocturia,</del> <del>increased?mental</del> <del>functioning</del> <del>such</del> <del>as</del> <del>memory,</del> <del>mood,</del> <del>and</del> <del>concentration.</del> <del>The</del> <del>patient's</del> <del>sleep</del> <del>history</del> <del>is</del> <del>suggestive</del> <del>of</del> <del>Restless</del> <del>Leg</del> <del>Syndrome.</del> <del>I</del> <del>recommend</del> <del>that</del> <del>the</del> <del>patient</del> <del>have</del> <del>a</del> <del>serum</del> <del>ferritin</del> <del>drawn</del> <del>for</del> <del>evaluation</del> <del>of</del> <del>iron</del> <del>deficiency</del> <del>anemia.</del> <del>If</del> <del>the</del> <del>patient</del> <del>has</del> <del>a</del> <del>serum</del> <del>ferritin</del> <del>less</del> <del>than</del> <del>75</del> <del>ng/mL,</del> <del>I</del> <del>recommend</del> <del>starting</del> <del>a</del> <del>daily</del> <del>iron</del> <del>supplement</del> <del>and</del> <del>a</del> <del>Vitamin</del> <del>C</del> <del>supplement</del> <del>for</del> <del>better</del> <del>absorption.</del> <del>If</del> <del>the</del> <del>serum</del> <del>ferritin</del> <del>is</del> <del>greater</del> <del>than</del> <del>75</del> <del>ng/mL,</del> <del>I</del> <del>recommend</del> <del>starting</del> <del>a</del> <del>dopamine</del> <del>agonist</del> <del>and</del> <del>titrating</del> <del>the</del> <del>dose</del> <del>until</del> <del>symptoms</del> <del>resolve.</del> <del>There</del> <del>are</del> <del>nonpharmacological</del> <del>methods</del> <del>to</del> <del>treat</del> <del>limb</del> <del>movements</del> <del>including</del> <del>daily</del> <del>exercise,</del> <del>stretching</del> <del>calf</del> <del>muscles</del> <del>before</del> <del>bed,</del> <del>avoiding</del> <del>excessive</del> <del>amounts</del> <del>of</del> <del>caffeine</del> <del>and</del> <del>alcohol,</del> <del>vitamin</del> <del>B</del> <del>supplementation,</del> <del>magnesium</del> <del>lotion</del> <del>massaged</del> <del>into</del> <del>legs</del> <del>before</del> <del>bed,</del> <del>and</del> <del>use</del> <del>of</del> <del>a</del> <del>weighted</del> <del>blanket.</del> Data The data obtained during this sleep study is adequate for interpretation. Certification This sleep study has been reviewed by a board certified sleep medicine physician.
== END 2025-04-27 06:48 | disposition home or self-care (01) ==
PROVIDERS: PCP Internal Medicine; Visit Provider Internal Medicine
DX: G47.33 Obstructive sleep apnea (adult) (pediatric) (principal)
CPT/HCPCS: 95811

== ENCOUNTER 2025-06-17 09:11 | Outpatient (CLI) | payer MEDICARE, SELFPAY ==
--- NOTE | ~2025-06-17 | XR_ITS ---
EXAMINATION: XR knee LT 3V, 06/17/2025 9:30 CDT HISTORY: M25.562 - Pain in left knee COMPARISON: No comparisons available. Findings: No acute fracture or malalignment. Prosthesis is intact. Soft tissues unremarkable. Impression: No acute fracture or malalignment. Reviewed, dictated and finalized at location A. Impression: No acute fracture or malalignment.
== END 2025-06-17 09:12 | disposition home or self-care (01) ==
PROVIDERS: PCP Internal Medicine; Visit Provider Orthopaedic Surgery
DX: M25.562 Pain in left knee (principal)
CPT/HCPCS: 73562